=== PATIENT | female | born 1990 | race Caucasian/White ===

== ENCOUNTER → 2023-08-13 15:01 | Outpatient (REF) | payer OTHER, SELFPAY ==
[2023-08-13 15:44] LABS: % Basophils 1.7 % (0-2); % Eosinophils 3.1 % (0-6); % Immature Granulocytes 0.3 % (0-0.5); % Lymphocytes 40.7 % (20.5-51.1); % Monocytes 5.5 % (1.7-9.3); % Neutrophils 48.7 % (42.2-75.2); Absolute Basophils 0.1 10^3/uL (0-0.2); Absolute Eosinophils 0.2 10^3/uL (0-0.7); Absolute Lymphocytes 2.6 10^3/uL (1.2-3.4); Absolute Monocytes 0.4 10^3/uL (0.1-0.6); Absolute Neutrophils 3.1 10^3/uL (1.4-6.5); Hematocrit 39.3 % (37.0-47.0); Mean Corp Hgb Conc. 33.1 g/dL (33.0-37.0); Mean Corpuscular Hgb 31.2 pg (27.0-31.0); Mean Corpuscular Volume 94.2 fL (81.0-99.0); Mean Platelet Volume 10.6 fL (7.4-10.4); Nucleated Red Blood Cells % 0 %; Platelet Count 259 10^3/uL (130-400); Red Blood Cell Count 4.17 10^6/uL (4.20-5.40); White Blood Cell Count 6.4 10^3/uL (4.8-10.8)
[2023-08-13 15:50] LABS: Urine Albumin Negative (Neg - Trace); Urine Bilirubin Negative (Negative); Urine Character Clear (Clear); Urine Color Yellow; Urine Glucose Negative (Negative); Urine Ketone Negative (Negative); Urine Leukocyte Negative (Negative); Urine Nitrite Negative (Negative); Urine Occult Blood Negative (Negative); Urine Urobilinogen Negative (Neg - 1+)
[2023-08-13 16:00] LABS: ALT (SGPT) 13 U/L (0-35); AST (SGOT) 22 U/L (14-36); Albumin 4.7 g/dl (3.5-5.0); Alkaline Phosphatase 88 U/L (38-126); Blood Urea Nitrogen 11 mg/dl (7-17); Calcium 9.7 mg/dl (8.4-10.2); Carbon Dioxide 28 mmol/L (22-30); Chloride 99 mmol/L (98-107); Glucose 102 mg/dl (70-99); Potassium 4.3 mmol/L (3.5-5.1); Sodium 140 mmol/L (135-145); Total Bilirubin 0.6 mg/dl (0.2-1.3); Total Protein 7.7 g/dl (6.3-8.2); eGFR > 60.00
[2023-08-13 16:04] LABS: C-Reactive Protein < 5.00 mg/L (0.0-10.00)
[2023-08-13 16:08] LABS: Erythrocyte Sed Rate 11 mm/hour (0-20)
[2023-08-13 16:09] LABS: Complement C3 98 mg/dl (88-165)
== END ==
LOC: REG 15:01
PROVIDERS: ATTENDING PHYSICIAN Internal Medicine Rheumatology; FAMILY PHYSICIAN Family Medicine
DX: M35.01 Sjogren syndrome with keratoconjunctivitis (principal); Z79.899 Other long term (current) drug therapy
CPT/HCPCS: 36415; 80053; 81003; 85025; 85652; 86140; 86160

== ENCOUNTER → 2023-10-03 07:52 | Outpatient (REF) | payer OTHER, SELFPAY | LOC: WDC 07:52 | PROVIDERS: ATTENDING PHYSICIAN Nurse Practitioner Family; FAMILY PHYSICIAN Obstetrics & Gynecology | DX: R21 Rash and other nonspecific skin eruption (principal); N64.52 Nipple discharge | CPT/HCPCS: 76642 ==

== ENCOUNTER → 2023-10-27 09:49 | Outpatient (REF) | payer OTHER, SELFPAY | LOC: PNTC 09:49 | PROVIDERS: ATTENDING PHYSICIAN Obstetrics & Gynecology | DX: O99.119 Other diseases of the blood and blood-forming organs and certain disorders involving the immune mechanism complicating pregnancy, unspecified trimester (principal); O09.629 Supervision of young multigravida, unspecified trimester | CPT/HCPCS: 76801; 76813 ==

== ENCOUNTER → 2023-11-03 08:55 | Outpatient (REF) | payer SELFPAY | LOC: PNTC 08:55 | PROVIDERS: ATTENDING PHYSICIAN Obstetrics & Gynecology | DX: Z36.9 Encounter for antenatal screening, unspecified (principal); Z36.82 Encounter for antenatal screening for nuchal translucency | CPT/HCPCS: 76815 ==

== ENCOUNTER → 2023-11-20 15:07 | Outpatient (REF) | payer OTHER, SELFPAY | LOC: PNTC 15:07 | PROVIDERS: ATTENDING PHYSICIAN Obstetrics & Gynecology | DX: M35.00 Sjogren syndrome, unspecified (principal) | CPT/HCPCS: 76805 ==

== ENCOUNTER → 2023-12-23 14:59 | Outpatient (REF) | payer OTHER, SELFPAY | LOC: PNTC 14:59 | PROVIDERS: ATTENDING PHYSICIAN Obstetrics & Gynecology | DX: M35.00 Sjogren syndrome, unspecified (principal) | CPT/HCPCS: 76811 ==

== ENCOUNTER → 2024-01-21 15:09 | Outpatient (REF) | payer OTHER, SELFPAY | LOC: PNTC 15:09 | PROVIDERS: ATTENDING PHYSICIAN Student in an Organized Health Care Education/Training Program | DX: M35.00 Sjogren syndrome, unspecified (principal); O99.119 Other diseases of the blood and blood-forming organs and certain disorders involving the immune mechanism complicating pregnancy, unspecified trimester | CPT/HCPCS: 76816 ==

== ENCOUNTER → 2024-02-18 15:58 | Outpatient (REF) | payer OTHER, SELFPAY | LOC: PNTC 15:58 | PROVIDERS: ATTENDING PHYSICIAN Student in an Organized Health Care Education/Training Program | DX: M35.00 Sjogren syndrome, unspecified (principal) | CPT/HCPCS: 76816 ==

== ENCOUNTER → 2024-03-11 06:57 | Outpatient (REF) | payer OTHER, SELFPAY ==
[2024-03-11 08:27] LABS: % Basophils 0.7 % (0-2); % Eosinophils 1.2 % (0-6); % Immature Granulocytes 1.3 % (0-0.5); % Monocytes 5.3 % (1.7-9.3); % Neutrophils 69.5 % (42.2-75.2); Absolute Basophils 0.1 10^3/uL (0-0.2); Absolute Eosinophils 0.1 10^3/uL (0-0.7); Absolute Immature Granulocytes 0.1 10^3/uL (0-0.05); Absolute Lymphocytes 1.7 10^3/uL (1.2-3.4); Absolute Monocytes 0.4 10^3/uL (0.1-0.6); Absolute Neutrophils 5.3 10^3/uL (1.4-6.5); Hematocrit 32.6 % (37.0-47.0); Hemoglobin 11.1 g/dL (12.0-16.0); Mean Corpuscular Hgb 32.9 pg (27.0-31.0); Mean Corpuscular Volume 96.7 fL (81.0-99.0); Mean Platelet Volume 10.6 fL (7.4-10.4); Nucleated Red Blood Cells % 0 %; Platelet Count 177 10^3/uL (130-400); Red Blood Cell Count 3.37 10^6/uL (4.20-5.40); Red Cell Dist. Width 13.3 % (11.5-14.5); White Blood Cell Count 7.6 10^3/uL (4.8-10.8)
== END ==
LOC: REG 06:57
PROVIDERS: ATTENDING PHYSICIAN Obstetrics & Gynecology; FAMILY PHYSICIAN Family Medicine; OTHER PHYSICIAN Internal Medicine Rheumatology
DX: Z36.9 Encounter for antenatal screening, unspecified (principal)
CPT/HCPCS: 36415; 85025

== ENCOUNTER → 2024-03-15 09:49 | Outpatient (REF) | payer OTHER, SELFPAY | LOC: PNTC 09:49 | PROVIDERS: ATTENDING PHYSICIAN Student in an Organized Health Care Education/Training Program | DX: M35.00 Sjogren syndrome, unspecified (principal); O99.891 Other specified diseases and conditions complicating pregnancy | CPT/HCPCS: 76816 ==

== ENCOUNTER → 2024-04-01 14:55 | Outpatient (REF) | payer OTHER, SELFPAY | LOC: PNTC 14:55 | PROVIDERS: ATTENDING PHYSICIAN Student in an Organized Health Care Education/Training Program | DX: O99.119 Other diseases of the blood and blood-forming organs and certain disorders involving the immune mechanism complicating pregnancy, unspecified trimester (principal) | CPT/HCPCS: 76815 ==

== ENCOUNTER → 2024-04-08 15:04 | Outpatient (REF) | payer OTHER, SELFPAY | LOC: PNTC 15:04 | PROVIDERS: ATTENDING PHYSICIAN Student in an Organized Health Care Education/Training Program | DX: O99.119 Other diseases of the blood and blood-forming organs and certain disorders involving the immune mechanism complicating pregnancy, unspecified trimester (principal) | CPT/HCPCS: 59025 ==

== ENCOUNTER → 2024-04-15 07:20 | Outpatient (REF) | payer OTHER, SELFPAY | LOC: PNTC 07:20 | PROVIDERS: ATTENDING PHYSICIAN Student in an Organized Health Care Education/Training Program | DX: M35.00 Sjogren syndrome, unspecified (principal) | CPT/HCPCS: 59025; 76815 ==

== ENCOUNTER → 2024-04-22 14:59 | Outpatient (REF) | payer OTHER, SELFPAY | LOC: PNTC 14:59 | PROVIDERS: ATTENDING PHYSICIAN Student in an Organized Health Care Education/Training Program | DX: M35.00 Sjogren syndrome, unspecified (principal); O99.891 Other specified diseases and conditions complicating pregnancy | CPT/HCPCS: 59025 ==

== ENCOUNTER → 2024-04-29 14:59 | Outpatient (REF) | payer OTHER, SELFPAY | LOC: PNTC 14:59 | PROVIDERS: ATTENDING PHYSICIAN Student in an Organized Health Care Education/Training Program | DX: M35.00 Sjogren syndrome, unspecified (principal); O99.119 Other diseases of the blood and blood-forming organs and certain disorders involving the immune mechanism complicating pregnancy, unspecified trimester | CPT/HCPCS: 59025 ==

== ENCOUNTER → 2024-05-06 09:06 | Outpatient (REF) | payer OTHER, SELFPAY | LOC: PNTC 09:06 | PROVIDERS: ATTENDING PHYSICIAN Student in an Organized Health Care Education/Training Program | DX: M35.00 Sjogren syndrome, unspecified (principal) | CPT/HCPCS: 59025; 76816 ==

== ENCOUNTER 2024-05-12 16:27 | Inpatient (IN) | payer OTHER, SELFPAY ==
[2024-05-12 16:54] VITALS: BMI 28.0
[2024-05-12 16:56] VITALS: BP 109/83
[2024-05-12 17:20] LABS: % Basophils 0.5 % (0-2); % Eosinophils 1.7 % (0-6); % Lymphocytes 19.6 % (20.5-51.1); % Monocytes 4.9 % (1.7-9.3); % Neutrophils 72.3 % (42.2-75.2); Absolute Basophils 0.1 10^3/uL (0-0.2); Absolute Eosinophils 0.2 10^3/uL (0-0.7); Absolute Immature Granulocytes 0.1 10^3/uL (0-0.05); Absolute Lymphocytes 2.1 10^3/uL (1.2-3.4); Absolute Monocytes 0.5 10^3/uL (0.1-0.6); Absolute Neutrophils 7.7 10^3/uL (1.4-6.5); Hematocrit 39.6 % (37.0-47.0); Hemoglobin 13.6 g/dL (12.0-16.0); Mean Corp Hgb Conc. 34.3 g/dL (33.0-37.0); Mean Corpuscular Hgb 31.9 pg (27.0-31.0); Mean Platelet Volume 10.6 fL (7.4-10.4); Nucleated Red Blood Cells % 0 %; Platelet Count 256 10^3/uL (130-400); Red Blood Cell Count 4.26 10^6/uL (4.20-5.40); White Blood Cell Count 10.6 10^3/uL (4.8-10.8)
[2024-05-12] MEDS: PENICILLIN 110 UNITS IV (17:26)
[2024-05-12] MEDS: SUBLIMAZE 100 MCG EPIDURAL (17:41)
[2024-05-12] MEDS: METHERGINE INJECTION 0.2 MG IM (19:33)
[2024-05-12] MEDS: TRANEXAMIC ACID 100 IV (20:09)
[2024-05-12] MEDS: TYLENOL 650 MG PO (20:54)
[2024-05-12] MEDS: MOTRIN 600 MG PO (20:55)
[2024-05-13] MEDS: MOTRIN 600 MG PO ×4 (03:01→23:22)
[2024-05-13] MEDS: TYLENOL 650 MG PO ×4 (03:01→23:23)
[2024-05-13 06:25] LABS: Hematocrit 39.1 % (37.0-47.0); Hemoglobin 13.3 g/dL (12.0-16.0)
[2024-05-13] MEDS: PLAQUENIL 300 MG PO (07:44)
[2024-05-13] MEDS: SENOKOT-S 1 TABLET PO (07:44)
[2024-05-13] MEDS: PRENATAL PLUS 1 TABLET PO (07:44)
[2024-05-14] MEDS: TYLENOL 650 MG PO (07:43)
[2024-05-14] MEDS: PRENATAL PLUS 1 TABLET PO (07:43)
[2024-05-14] MEDS: MOTRIN 600 MG PO (07:43)
[2024-05-14] MEDS: PLAQUENIL 300 MG PO (07:43)
[2024-05-14] MEDS: SENOKOT-S 1 TABLET PO (07:43)
[2024-05-14 13:48] LABS: Syphilis/T. pallidum Ab Reflex Negative (Negative)
== END 2024-05-14 11:57 | disposition home or self-care (01) | DRG 807 ==
LOC: LDRP 16:27
PROVIDERS: ADMITTING PHYSICIAN Obstetrics & Gynecology; FAMILY PHYSICIAN Family Medicine
PROC: 0UQMXZZ Repair Vulva, External Approach (ICD-10-PCS; 2024-05-12)
PROC: 10E0XZZ Delivery of Products of Conception, External Approach (ICD-10-PCS; 2024-05-12)
PROC: 4A1HXCZ Monitoring of Products of Conception, Cardiac Rate, External Approach (ICD-10-PCS; 2024-05-12)
PROC: 0UQG7ZZ Repair Vagina, Via Natural or Artificial Opening (ICD-10-PCS; 2024-05-12)
PROC: 10907ZC Drainage of Amniotic Fluid, Therapeutic from Products of Conception, Via Natural or Artificial Opening (ICD-10-PCS; 2024-05-12)
DX: O48.0 Post-term pregnancy (principal); Z37.0 Single live birth; O69.81X0 Labor and delivery complicated by cord around neck, without compression, not applicable or unspecified; Z3A.40 40 weeks gestation of pregnancy; O70.0 First degree perineal laceration during delivery; O99.824 Streptococcus B carrier state complicating childbirth; O77.0 Labor and delivery complicated by meconium in amniotic fluid; M35.00 Sjogren syndrome, unspecified; O99.892 Other specified diseases and conditions complicating childbirth
CPT/HCPCS: 85014; 85018; 85025; 86780; 86850; 86900; 86901

== ENCOUNTER → 2025-02-08 08:31 | Outpatient (REF) | payer BC, SELFPAY ==
[2025-02-08 10:04] LABS: Hematocrit 39.8 % (37.0-47.0); Hemoglobin 13.4 g/dL (12.0-16.0); Mean Corp Hgb Conc. 33.7 g/dL (33.0-37.0); Mean Corpuscular Volume 91.5 fL (81.0-99.0); Nucleated Red Blood Cells % 0 %; Platelet Count 266 10^3/uL (130-400); Red Cell Dist. Width 11.9 % (11.5-14.5)
[2025-02-08 10:54] LABS: Urine Character Clear (Clear)
[2025-02-08 10:56] LABS: ALT (SGPT) 16 U/L (0-35); AST (SGOT) 21 U/L (14-36); Albumin 5.0 g/dl (3.5-5.0); Alkaline Phosphatase 64 U/L (38-126); Blood Urea Nitrogen 9 mg/dl (7-17); Calcium 10.0 mg/dl (8.4-10.2); Carbon Dioxide 31 mmol/L (22-30); Chloride 99 mmol/L (98-107); Glucose 85 mg/dl (70-99); Potassium 4.6 mmol/L (3.5-5.1); Sodium 139 mmol/L (135-145); Total Protein 7.4 g/dl (6.3-8.2); eGFR > 60.00
[2025-02-08 10:59] LABS: C-Reactive Protein < 5.00 mg/L (0.0-10.00)
== END ==
LOC: REG 08:31
PROVIDERS: ATTENDING PHYSICIAN Internal Medicine Rheumatology; FAMILY PHYSICIAN Family Medicine
DX: M35.01 Sjogren syndrome with keratoconjunctivitis (principal)
CPT/HCPCS: 36415; 80053; 81003; 82570; 84156; 85025; 85652; 86140; 86160